=== PATIENT | male | born 1995 | race African-American/Black ===

== ENCOUNTER 2022-08-23 09:18 | Inpatient (IN) | payer BC ==
[~2022-08-23] VITALS: Ht 172.7 cm; Wt 67.1 kg
[2022-08-23] MEDS ORDERED: ONDANSETRON HCL 4MG/2ML INJ IV STA (10:35)
[2022-08-23] MEDS ORDERED: SODIUM CHLORIDE 0.9% 1,000 ML IV ONE (10:45)
[2022-08-23 11:41] LABS: BASOPHILS % 0.3 % (0.0-2.0); HEMATOCRIT. 33.4 % (42.0-52.0); HEMOGLOBIN. 11.1 g/dL (14.0-18.0); LYMPHOCYTES % 14.8 % (20.0-50.0); MEAN CORPUSCULAR HEMOGLOBIN 27.7 pg (28.0-32.0); MEAN CORPUSCULAR VOLUME 83.4 fL (80.0-94.0); NEUTROPHILS % 79.9 % (40.0-76.0); PLATELET 216 x1000/uL (130-400); RED CELL DISTRIBUTION WIDTH 13.7 % (11.6-14.6)
[2022-08-23 11:55] LABS: CHLORIDE 109 mEq/L (98-107)
[2022-08-23] MEDS ORDERED: MAGNESIUM/ALUMINUM HYDROXIDE/SIMETHICONE 30ML UDC PO ONE (13:45)
[2022-08-23] MEDS ORDERED: PANTOPRAZOLE SODIUM 40 MG/VIAL IV ONE (13:45)
[2022-08-23] MEDS ORDERED: ONDANSETRON 4MG ODT PO ONE (13:45)
[2022-08-23] MEDS ORDERED: VISCOUS LIDOCAINE 2% 15 ML UDC PO ONE (13:45)
[2022-08-23] MEDS ORDERED: NITROGLYCERIN 0.4MG TABLET SL SL PRN (16:45)
[2022-08-23] MEDS ORDERED: IPRATROPIUM/ALBUTEROL 0.5-3(2.5)MG/3ML NEB NEB PRN (16:45)
[2022-08-23] MEDS: DEXT 5%/LACTATED RINGERS 1,000 ML IV SCH (16:45)
[2022-08-23] MEDS ORDERED: ONDANSETRON HCL 4MG/2ML INJ IV PRN (16:45)
[2022-08-23] MEDS ORDERED: ACETAMINOPHEN 650MG SUPP PR PRN ×2 (16:45)
[2022-08-23] MEDS ORDERED: PANTOPRAZOLE 80 MG in SODIUM CHLORIDE 0.9% 100 ML IV SCH (16:45)
[2022-08-23 17:08] LABS: CLARITY URINE CLEAR (CLEAR); COLOR URINE YELLOW (YELLOW); KETONES URINE 1+ (NEGATIVE); LEUKOCYTE ESTERASE URINE NEGATIVE (NEGATIVE); NITRITE URINE NEGATIVE (NEGATIVE); OCCULT BLOOD URINE 1+ (NEGATIVE); PH URINE 5.5 (4.5-8.0); PROTEIN URINE 2+ (NEGATIVE); UROBILINOGEN URINE 0.2 E.U./dL (0.2-1.0)
[2022-08-23 17:13] LABS: ETHANOL BLOOD < 10 mg/dL
[2022-08-23 17:19] LABS: *AMPHETAMINES SCREEN URINE NEGATIVE (NEGATIVE); *BARBITURATES SCREEN URINE NEGATIVE (NEGATIVE); *BENZODIAZEPINES SCREEN URINE NEGATIVE (NEGATIVE); *COCAINE SCREEN URINE NEGATIVE (NEGATIVE); CANNABINOID URINE SCREEN NEGATIVE (NEGATIVE); METHADONE URINE SCREEN NEGATIVE (NEGATIVE); OPIATES URINE SCREEN NEGATIVE (NEGATIVE); PHENCYCLIDINE URINE SCREEN NEGATIVE (NEGATIVE)
[2022-08-23 17:22] LABS: T4 FREE 0.74 ng/dL (0.76-1.46); TOTAL IRON BINDING CAPACITY 310 ug/dL (250-450)
[2022-08-23 17:38] LABS: VITAMIN B12 SERUM 362 pg/mL (211-911)
[2022-08-23] MEDS: PANTOPRAZOLE 80 MG in SODIUM CHLORIDE 0.9% 100 ML IV SCH (18:30)
[2022-08-24] VITALS (7 sets, daily range): BP systolic 103–147; BP diastolic 51–71
[2022-08-24] MEDS: DEXT 5%/LACTATED RINGERS 1,000 ML IV SCH ×3 (03:38→22:45)
[2022-08-24] MEDS: PANTOPRAZOLE 80 MG in SODIUM CHLORIDE 0.9% 100 ML IV SCH ×2 (05:54→14:30)
[2022-08-24 06:45] LABS: BASOPHILS % 0.4 % (0.0-2.0); EOSINOPHILS % 1.4 % (0.0-5.0); HEMATOCRIT. 26.8 % (42.0-52.0); HEMOGLOBIN. 9.1 g/dL (14.0-18.0); LYMPHOCYTES % 20.3 % (20.0-50.0); MEAN CORPUSCULAR VOLUME 82.9 fL (80.0-94.0); MONOCYTES % 7.3 % (2.0-8.0); NEUTROPHILS % 70.6 % (40.0-76.0); PLATELET 169 x1000/uL (130-400); RED BLOOD CELL COUNT 3.23 mill/uL (4.7-6.1); RED CELL DISTRIBUTION WIDTH 13.5 % (11.6-14.6)
[2022-08-24 07:40] LABS: CHLORIDE 110 mEq/L (98-107)
[2022-08-24 07:47] LABS: PHOSPHORUS 3.4 mg/dL (2.5-4.9)
[2022-08-24] MEDS: LEVOTHYROXINE SODIUM 50MCG TABLET PO SCH (11:38)
[2022-08-24] MEDS ORDERED: IRON SUCROSE COMPLEX 100 MG/5 ML ML IV SCH (13:00)
[2022-08-24 13:05] LABS: PROTHROMBIN TIME 11.2 sec (9.6-11.0)
[2022-08-24] MEDS: SUCRALFATE 1 G/10 ML UDC PO SCH ×2 (17:36→21:00)
[2022-08-24] MEDS ORDERED: IPRATROPIUM BROMIDE (0.02%) 0.5MG/2.5ML NEB HHN PRN (20:30)
[2022-08-24] MEDS ORDERED: ALBUTEROL (0.083%) 2.5MG/3ML NEB HHN PRN (20:30)
[2022-08-25] VITALS: BP 132/77
[2022-08-25] MEDS: PANTOPRAZOLE 80 MG in SODIUM CHLORIDE 0.9% 100 ML IV SCH (00:15)
[2022-08-25 04:00] VITALS: BP 127/69
[2022-08-25] MEDS: SUCRALFATE 1 G/10 ML UDC PO SCH (05:52)
[2022-08-25] MEDS: LEVOTHYROXINE SODIUM 50MCG TABLET PO SCH ×2 (05:52→07:52)
[2022-08-25 07:09] LABS: PROTHROMBIN TIME 10.8 sec (9.6-11.0)
[2022-08-25 07:16] LABS: BASOPHILS % 0.3 % (0.0-2.0); EOSINOPHILS % 2.2 % (0.0-5.0); HEMATOCRIT. 25.6 % (42.0-52.0); HEMOGLOBIN. 8.5 g/dL (14.0-18.0); LYMPHOCYTES % 26.5 % (20.0-50.0); MEAN CORPUSCULAR HEMOGLOBIN 27.4 pg (28.0-32.0); MEAN CORPUSCULAR VOLUME 82.8 fL (80.0-94.0); MEAN PLATELET VOLUME 9.6 fl (7.4-10.4); MONOCYTES % 7.7 % (2.0-8.0); NEUTROPHILS % 63.3 % (40.0-76.0); PLATELET 169 x1000/uL (130-400); RED CELL DISTRIBUTION WIDTH 13.5 % (11.6-14.6)
[2022-08-25 08:00] VITALS: BP 110/64
[2022-08-25 08:19] LABS: CHLORIDE 106 mEq/L (98-107)
== END 2022-08-25 09:50 | disposition left against medical advice (07) | DRG 378 ==
LOC: ER 09:44 → 7WST 16:09 → EDBEDREQSVC 16:42 → EDBEDREQ 16:42 → EDBEDREQTM 16:42 → ENRESERV 23:50
PROVIDERS: ADMIT Internal Medicine; ATTEND Internal Medicine
DX: K92.2 Gastrointestinal hemorrhage, unspecified (principal); D62 Acute posthemorrhagic anemia; D64.9 Anemia, unspecified; E03.9 Hypothyroidism, unspecified; Z53.29 Procedure and treatment not carried out because of patient's decision for other reasons
CPT/HCPCS: 36415; 71045; 80048; 80053; 80305; 80320; 81003; 82607; 82746; 83036; 83540; 83550; 83735; 84100; 84439; 84443; 85025; 86850; 86900; 93970; 99285; C9113; J7030; J7050; Q0162; G0480